=== PATIENT | male | born 1955 | race Two or more races ===

== ENCOUNTER → 2024-11-12 | Emergency (ER) | payer OTHER ==
[~2024-11-12] VITALS: Ht 167.6 cm; Wt 77.1 kg
[~2024-11-12] MED LIST: CEFTRIAXONE SODIUM 2,000 MG VIAL ONE; JANUMET XR 50-1 EAC1 PO; PHENAZOPYRIDINE HCL 100 MG TABLET PO ONE
== END | disposition left against medical advice (07) ==
LOC: ER 07:35
DX: Z53.21 Procedure and treatment not carried out due to patient leaving prior to being seen by health care provider (principal)

== ENCOUNTER 2024-11-14 06:13 | Inpatient (IN) | payer OTHER ==
[~2024-11-14] VITALS: Ht 167.6 cm; Wt 169.6 kg
[~2024-11-14 06:13] MED LIST changes: -CEFTRIAXONE SODIUM 2,000 MG VIAL ONE; -PHENAZOPYRIDINE HCL 100 MG TABLET PO ONE
[2024-11-14] MEDS ORDERED: CEFTRIAXONE SODIUM 1,000 MG VIAL IV STA (07:12)
[2024-11-14] MEDS ORDERED: PHENAZOPYRIDINE HCL 100 MG TABLET PO STA (07:12)
[2024-11-14] MEDS ORDERED: CEFTRIAXONE SODIUM 1,000 MG VIAL ONE (07:37)
[2024-11-14 08:11] LABS: BASO % 0.3 % (0.1-1.2); HEMATOCRIT 42.8 % (40.1-51.0); HEMOGLOBIN 14.3 g/dL (13.7-17.5); LYMPH # 1.38 (1.18-3.74); LYMPH % 7.1 % (19.3-53.1); MEAN CORPUSCULAR HEMOGLOBIN 27.4 pg (25.6-32.2); MONO # 1.96 (0.24-0.82); NEUT # 15.85 (1.56-6.13); PLATELET COUNT 139 K/uL (163-369); RED BLOOD COUNT 5.22 M/uL (4.63-6.08); RED CELL DISTRIBUTION WIDTH 14.4 % (11.6-14.4)
[2024-11-14 08:44] LABS: PH,URINE 5.5 (5.0-8.0); URINE APPEARANCE Cloudy; URINE BILIRRUBIN Moderate (NEGATIVE); URINE BLOOD Large; URINE COLOR Dark Yellow; URINE GLUCOSE Negative (NEGATIVE); URINE LEUKOCYTE Moderate; URINE NITRATE Positive
[2024-11-14 08:46] LABS: URINE RBC 20.4 uL (0.0-20.8); URINE WBC 884.6 uL (0.0-23.2)
[2024-11-14 09:29] LABS: URINE BACTERIA > 9821.5 uL (0.0-1933); URINE KETONE 80 (NEGATIVE); URINE PROTEIN 100 (NEGATIVE)
[2024-11-14 09:30] LABS: TYPE CELLS RENAL TUBULAR
[2024-11-14 09:35] LABS: ALBUMIN 3.6 gm/dL (3.4-5.0); BILIRUBIN TOTAL 1.09 mg/dL (0.3-1.2); CALCIUM 9.2 mg/dL (8.5-10.1); CREATININE SERUM 0.89 mg/dL (0.70-1.30); GLOBULINA 4.6 G/DL (2.4-3.5); POTASSIUM 4.19 mEq/L (3.5-5.1); TOTAL PROTEIN 8.2 gm/dL (6.4-8.2)
[2024-11-14] MEDS ORDERED: 0.9 % SODIUM CHLORIDE 1,000 ML IV ONE (12:45)
[2024-11-14] MEDS ORDERED: 0.9 % SODIUM CHLORIDE 1,000 ML IV SCH (19:00)
[2024-11-14] MEDS ORDERED: CEFTRIAXONE SODIUM 2,000 MG in 0.9 % SODIUM CHLORIDE 100 ML IV SCH (19:02)
[2024-11-14] MEDS ORDERED: DEXTROSE 50 % IN WATER 0.5 G/ML DISP.SYRIN IV PRN (19:15)
[2024-11-14] MEDS ORDERED: ACETAMINOPHEN 500 MG GEL..CAP PO PRN (19:15)
[2024-11-14] MEDS ORDERED: INSULIN LISPRO 1,000 UNIT/10 ML UNITS SUBCUTANEO PRN (19:15)
[2024-11-14 21:18] LABS: INR 1.06; PARTIAL THROMBOPLASTIN TIME 28.1 SECONDS (22.0-34.0); PROTHROMBIN TIME 11.5 SECONDS (9.0-11.5)
[2024-11-15 07:13] LABS: C-REACTIVE PROTEIN 24.3 MG/DL (0.00-0.29); PROSTATIC SPECIFIC ANTIGEN 32.4 NG/ML (0.010-4.00)
[2024-11-15 08:46] VITALS: BP 129/77; O2SAT 96
[2024-11-15] MEDS ORDERED: FAMOTIDINE/PF 20 MG in 0.9 % SODIUM CHLORIDE 8 ML IV PUSH SCH (09:00)
[2024-11-15] MEDS ORDERED: ENOXAPARIN SODIUM 40 MG/0.4 ML SYRINGE SUBCUTANEO SCH (09:00)
[2024-11-15] MEDS ORDERED: NA PHOS,M-B/NA PHOS,DI-BA 1 BOTTLE ENEMA RECTAL STA (15:25)
[2024-11-15 16:00] VITALS: BP 124/77; O2SAT 97
[2024-11-15] MEDS ORDERED: TAMSULOSIN HCL 0.4 MG CAP PO SCH (21:00)
[2024-11-16 02:26] VITALS: BP 117/72; O2SAT 98
[2024-11-16] MEDS ORDERED: SODIUM CHLORIDE 0.45 % 1,000 ML IV SCH (07:45)
[2024-11-16 08:00] VITALS: BP 118/70; O2SAT 97
[2024-11-16 08:32] LABS: BASO % 0.6 % (0.1-1.2); EOS # 0.04 (0.04-0.54); EOS % 0.5 % (0.7-7.0); HEMATOCRIT 36.8 % (40.1-51.0); HEMOGLOBIN 12.1 g/dL (13.7-17.5); LYMPH # 1.43 (1.18-3.74); LYMPH % 16.9 % (19.3-53.1); MEAN CORPUSCULAR HEMOGLOBIN 27.8 pg (25.6-32.2); MONO # 1.24 (0.24-0.82); NEUT # 5.64 (1.56-6.13); NEUT % 66.6 % (34.0-71.1); PLATELET COUNT 162 K/uL (163-369); RED BLOOD COUNT 4.35 M/uL (4.63-6.08); RED CELL DISTRIBUTION WIDTH 14.3 % (11.6-14.4)
[2024-11-16 08:32] LABS: URINE APPEARANCE Clear; URINE BILIRRUBIN Negative (NEGATIVE); URINE BLOOD Negative; URINE COLOR Yellow; URINE GLUCOSE Negative (NEGATIVE); URINE KETONE 15 (NEGATIVE); URINE LEUKOCYTE Trace; URINE NITRATE Negative; URINE PROTEIN Trace (NEGATIVE)
[2024-11-16 08:34] LABS: URINE BACTERIA 12.2 uL (0.0-1933); URINE EPITHELIAL CELLS 4.2 uL (0.0-38.8); URINE RBC 3.8 uL (0.0-20.8); URINE WBC 14.8 uL (0.0-23.2)
[2024-11-16 08:45] LABS: MONO % 14.7 % (4.7-12.5)
[2024-11-16] MEDS ORDERED: RIVAROXABAN 10 MG TAB PO SCH (09:00)
[2024-11-16] MEDS ORDERED: SIMVASTATIN 10 MG TABLET PO SCH (09:00)
[2024-11-16] MEDS ORDERED: FINASTERIDE 5 MG TABLET PO SCH (09:00)
[2024-11-16 09:19] LABS: ALBUMIN 2.8 gm/dL (3.4-5.0); BILIRUBIN TOTAL 0.5 mg/dL (0.3-1.2); CALCIUM 8.5 mg/dL (8.5-10.1); CREATININE SERUM 0.67 mg/dL (0.70-1.30); GFR 117.96; GLOBULINA 3.6 G/DL (2.4-3.5); MAGNESIUM 2.3 mg/dL (1.8-2.4); PHOSPHOROUS 2.4 mg/dL (2.5-4.9); POTASSIUM 4.28 mEq/L (3.5-5.1); TOTAL PROTEIN 6.4 gm/dL (6.4-8.2)
[2024-11-16 09:20] LABS: C-REACTIVE PROTEIN 11.6 MG/DL (0.00-0.29)
[2024-11-16 11:26] LABS: CHOL HDL RATIO 6.2 (0-5.0); TSH 0.897 uIU/mL (0.358-3.74)
[2024-11-16] MEDS ORDERED: MEROPENEM 500 MG/VIAL VIAL IV SCH (12:00)
[2024-11-16 16:00] VITALS: BP 122/72; O2SAT 96
[2024-11-16] MEDS ORDERED: PANTOPRAZOLE SODIUM 40 MG TABLET.DR PO SCH (21:00)
[2024-11-17 01:13] VITALS: BP 132/83; O2SAT 97
[2024-11-17 08:10] VITALS: BP 118/70; O2SAT 99
[2024-11-17 09:08] LABS: free psa 0.92 ng/mL; total psa 18.4 ng/mL (0.0-4.0)
[2024-11-17 16:00] VITALS: BP 124/75; O2SAT 96
[2024-11-18 00:30] VITALS: BP 148/90; O2SAT 98
[2024-11-18 08:00] VITALS: BP 127/79; O2SAT 96
[2024-11-18] MEDS ORDERED: INSULIN NPH HUM/REG INSULIN HM 1,000 UNIT/10 ML UNITS SUBCUTANEO SCH (08:00)
[2024-11-18 15:20] VITALS: BP 144/78; O2SAT 98
[2024-11-19 00:47] VITALS: BP 146/85; O2SAT 95
[2024-11-19 08:00] VITALS: BP 136/72; O2SAT 96
[2024-11-19] MEDS ORDERED: INSULIN NPH HUM/REG INSULIN HM 1,000 UNIT/10 ML UNITS SUBCUTANEO SCH (17:00)
== END 2024-11-19 23:14 | disposition home or self-care (01) | DRG 690 ==
LOC: ER 06:20 → SURH 20:28 → SEC-K 20:28 → SURH 11-15 03:33
PROVIDERS: General Practice; Internal Medicine Infectious Disease; ADMIT Internal Medicine; ATTEND Internal Medicine
PROC: BW21YZZ Computerized Tomography (CT Scan) of Abdomen and Pelvis using Other Contrast (ICD-10-PCS; principal; 2024-11-14)
PROC: BB24ZZZ Computerized Tomography (CT Scan) of Bilateral Lungs (ICD-10-PCS; 2024-11-15)
PROC: 8E0ZXY6 Isolation (ICD-10-PCS; 2024-11-16)
PROC: 02HV33Z Insertion of Infusion Device into Superior Vena Cava, Percutaneous Approach (ICD-10-PCS; 2024-11-19)
PROC: B548ZZA Ultrasonography of Superior Vena Cava, Guidance (ICD-10-PCS; 2024-11-19)
DX: N30.81 Other cystitis with hematuria (principal); N41.0 Acute prostatitis; B96.20 Unspecified Escherichia coli [E. coli] as the cause of diseases classified elsewhere; L92.8 Other granulomatous disorders of the skin and subcutaneous tissue; E11.65 Type 2 diabetes mellitus with hyperglycemia; N40.0 Benign prostatic hyperplasia without lower urinary tract symptoms; Z79.84 Long term (current) use of oral hypoglycemic drugs

== ENCOUNTER → 2025-04-09 | Emergency (ER) | payer OTHER ==
[~2025-04-09] VITALS: Ht 317.5 cm; Wt 75.3 kg
[~2025-04-09] MED LIST changes: +0.9 % SODIUM CHLORIDE 1,000 ML IV SCH; +AZITHROMYCIN 500 MG VIAL IV ONE; +FAMOTIDINE/PF 20 MG/2 ML VIAL IV ONE; +FAMOTIDINE/PF 20 MG/2 ML VIAL ONE; +FAMOTIDINE20 MG; +METFORMIN HCL500 M3; +ROBITUSSIN COU237 M1 PO; +ZITHROMAX TRI-500 MG PO
[2025-04-09 13:53] LABS: BASO % 1.0 % (0.1-1.2); EOS # 0.03 (0.04-0.54); EOS % 0.7 % (0.7-7.0); LYMPH # 1.40 (1.18-3.74); LYMPH % 33.3 % (19.3-53.1); MEAN PLATELET VOLUME 12.40 fl (9.4-12.4); MONO # 0.64 (0.24-0.82); NEUT # 2.09 (1.56-6.13); NEUT % 49.6 % (34.0-71.1); RED CELL DISTRIBUTION WIDTH 14.0 % (11.6-14.4)
[2025-04-09 13:57] LABS: MONO % 15.2 % (4.7-12.5)
[2025-04-09 14:26] LABS: ALT/SGPT 23 U/L (12-78); AST/SGOT 16 U/L (15-37); BILIRUBIN TOTAL 0.37 mg/dL (0.3-1.2); BUN CREA RATIO 11 (7.0-25.0); CREATININE SERUM 0.98 mg/dL (0.70-1.30); GFR 75.83; GLOBULINA 4.5 G/DL (2.4-3.5)
[2025-04-09 14:37] LABS: CKMB < 1.0 NG/ML (0.5-3.6); GLUCOSE FASTING 270 mg/dL (65-100); OSMOLALITY SERUM 292 MOSM/KG (275-295)
[2025-04-09 14:48] LABS: COVID-19 AG NEGATIVE (NEGATIVE)
== END | disposition home or self-care (01) ==
LOC: ER 10:58
PROVIDERS: Student in an Organized Health Care Education/Training Program
DX: J20.9 Acute bronchitis, unspecified (principal); R07.89 Other chest pain; R05.9 Cough, unspecified; E11.9 Type 2 diabetes mellitus without complications; Z79.84 Long term (current) use of oral hypoglycemic drugs; Z20.822 Contact with and (suspected) exposure to COVID-19